=== PATIENT | female | born 1990 | race Caucasian/White ===

== ENCOUNTER 2023-01-28 17:51 | Emergency (ER) | payer SELFPAY ==
[~2023-01-28] VITALS: Ht 149.9 cm; Wt 50.5 kg
[2023-01-28 17:55] VITALS: TEMP 98.8; O2SAT 99
[2023-01-28] MEDS ORDERED: HYDR-3992 MT (19:30)
[2023-01-28 19:47] VITALS: BP 110/90; PULSE 78; RESP 20
== END 2023-01-28 19:48 | disposition home or self-care (01) ==
LOC: ER 17:51
DX: F41.9 Anxiety disorder, unspecified (principal); R07.89 Other chest pain; F32.9 Major depressive disorder, single episode, unspecified; Z90.49 Acquired absence of other specified parts of digestive tract; Z98.890 Other specified postprocedural states
CPT/HCPCS: 71045; 99283